=== PATIENT | female | born 1970 | race Hispanic/Latino ===

== ENCOUNTER 2018-10-08 14:34 | Outpatient (CLI) | payer OTHER | END 2018-10-08 14:35 | disposition home or self-care (01) | LOC: BICMAMMO 14:34 | PROVIDERS: ATTEND Family Medicine | DX: Z12.31 Encounter for screening mammogram for malignant neoplasm of breast (principal) | CPT/HCPCS: 77063; 77067 ==

== ENCOUNTER 2019-10-11 08:03 | Outpatient (CLI) | payer OTHER ==
--- NOTE | 2019-10-11 09:13 | MMO ---
Bilateral MAMMO Bilat Screen DDI+DEYSI. CLINICAL HISTORY: Patient is 49 years old and is seen for screening. The patient has no family history of breast cancer. The patient has no personal history of cancer. VIEWS: The views performed were: bilateral craniocaudal with tomosynthesis; bilateral mediolateral oblique with tomosynthesis; and left mediolateral oblique. FILMS COMPARED: The present examination has been compared to prior imaging studies performed at [facility] on 10/06/2017 and 10/08/2018. This study has been interpreted with the assistance of computer-aided detection. MAMMOGRAM FINDINGS: There are scattered fibroglandular densities. There are stable benign appearing calcifications seen in the left breast. There are no suspicious masses, calcifications or areas of architectural distortion. There are no suspicious masses, suspicious calcifications, or new areas of architectural distortion. IMPRESSION: THERE IS NO MAMMOGRAPHIC EVIDENCE OF MALIGNANCY. A ROUTINE FOLLOW-UP MAMMOGRAM IN 1 YEAR IS RECOMMENDED. THE RESULTS OF THIS EXAM WERE SENT TO THE PATIENT. ACR BI-RADS Category 2 - Benign finding MAMMOGRAPHY NOTE: 1. A negative mammogram report should not delay a biopsy if a dominant of clinically suspicious mass is present. 2. Approximately 10% to 15% of breast cancers are not detected by mammography. 3. Adenosis and dense breasts may obscure an underlying neoplasm. Reported by: ORQUIDEA ESCALANTE MD Electonically Signed: [id number]
== END 2019-10-11 08:04 | disposition home or self-care (01) ==
LOC: BICMAMMO 08:03
PROVIDERS: ATTEND Family Medicine
DX: Z12.31 Encounter for screening mammogram for malignant neoplasm of breast (principal)
CPT/HCPCS: 77063; 77067

== ENCOUNTER 2020-02-01 16:11 | Inpatient (IN) | payer OTHER, SELFPAY ==
[2020-02-01 17:33] LABS: Hemoglobin 15.1 g/dL (12.0-16.0); Mean Corpuscular HGB CONC 32.9 g/dL (32.0-36.0); Mean Corpuscular Hemoglobin 31.8 pg (27.0-31.0); Mean Corpuscular Volume 96.6 fL (78.0-98.0); Mean Platelet Volume 9.1 fL (7.4-10.4); Platelet Count 215 thou/uL (130-400); RBC Distribution Width 13.4 % (11.5-14.5); Red Blood Cell (RBC) Count 4.75 mill/uL (4.20-5.40); White Blood Cell (WBC) Count 25.9 thou/uL (4.8-10.8)
[2020-02-01 17:37] LABS: BHCG - Serum Negative (NEGATIVE); Pregs Control Background? CLEAR/WHITE (CLR/WHITE); Pregs Control Bar Appear? YES (CONTROL BAR)
[2020-02-01 17:47] LABS: Band 27 % (5-11); Lymphocytes 4 % (21-51); MDiff Complete? YES; Metamyelocyte 1 % (0-0); Monocytes 1 % (0-10); Neutrophil 67 % (42-75); Platelet Morphology Comment Appears Adequate; RBC Morphology Normal; Vacuoles SLIGHT
--- NOTE | 2020-02-01 17:58 | ULT ---
RIGHT UPPER QUADRANT ULTRASOUND CLINICAL HISTORY: Right upper quadrant pain. COMPARISON: None FINDINGS: Liver:Normal echotexture without focal mass. Intrahepatic bile ducts: No intrahepatic or extrahepatic biliary dilation.; Common bile duct: 5.1 mm. Gallbladder: Numerous gallstones. There is mild gallbladder wall thickening. No definite pericholecys tic edema seen. Amato's sign:None Main portal vein:Patent with hepatopedal flow. Pancreas:Visualized pancreas appears normal. Right kidney: Right kidney measures 10.0 x 4.3 x 5.5 cm. No hydronephrosis. No focal renal lesion. No nspecific mild perinephric edema. Additional findings: None. IMPRESSION: Cholelithiasis without definite sonographic evidence of acute cholecystitis. Nonspecific mild right perinephric edema. No hydronephrosis is demonstrated.
[2020-02-01] MEDS ORDERED: Morphine 4 MG/ML VIAL ONE ×2 (17:59→19:49)
[2020-02-01] MEDS ORDERED: Ondansetron PF 4 MG/2 ML Vial ONE (18:00)
[2020-02-01 18:05] LABS: ALT (SGPT) 400 U/L (8-55); AST (SGOT) 311 U/L (5-34); Albumin 3.7 g/dL (3.5-5.0); Alkaline Phosphatase 576 U/L (40-110); Anion Gap 16 mmol/L (10-20); BUN (Urea Nitrogen) 9 mg/dL (7.0-18.7); Bilirubin, Total 8.8 mg/dL (0.2-1.2); CK (CPK) 38 U/L (29-168); Calc. Creatinine Clearance 0 mL/min (70-130); Calcium 8.6 mg/dL (7.8-10.44); Carbon Dioxide 21 mmol/L (22-29); Chloride 102 mmol/L (98-107); Estimated GFR-MDRD Greater than 90; Globulin 3.8 g/dL (2.4-3.5); Glucose 95 mg/dL (70-105); Protein, Total 7.5 g/dL (6.0-8.3); Sodium 136 mmol/L (136-145)
[2020-02-01 18:09] LABS: Lipase 3568 U/L (8-78)
[2020-02-01 18:21] LABS: Potassium 2.9 mmol/L (3.5-5.1)
[2020-02-01 18:29] LABS: Bilirubin 4+ (Negative); Blood, Urine Negative (Negative); Clarity Turbid (Clear); Glucose, Urine (Dipstick) 50 mg/dL (Negative); Leukocyte 250 Leu/uL (Negative); Nitrite Negative (Negative); Protein, Urine (Dipstick) 200 mg/dL (Neg-Trace); RBC/HPF 0-3 HPF (0-3); Urobilinogen 6 mg/dL (Less than 2)
[2020-02-01 18:40] LABS: Bacteria/HPF 2+ HPF (None Seen)
[2020-02-01 18:41] LABS: Epithelial Cast 0-3 LPF (None Seen)
[2020-02-01] MEDS ORDERED: Piperacillin/Tazobactam 4.5 GM VIAL ONE (18:45)
[2020-02-01] MEDS ORDERED: Piperacillin/Tazobactam 4.5 GM in Sodium Chloride 0.9% 100 ML IVPB SCH (19:00)
[2020-02-01] MEDS ORDERED: Potassium Chloride 40 MEQ in Sodium Chloride 0.9% 250 ML 250 ML IVPB SCH (19:00)
[2020-02-01] MEDS ORDERED: Morphine 2 MG/ML SYRINGE SLOW IVP PRN (21:43)
[2020-02-01] MEDS ORDERED: Morphine 4 MG/ML VIAL SLOW IVP PRN (21:43)
[2020-02-01] MEDS ORDERED: Metoclopramide HCl 10 MG/2 ML VIAL IVP PRN (21:43)
--- NOTE | 2020-02-01 22:20 | HP ---
CHIEF COMPLAINT: Pain. HISTORY OF PRESENT ILLNESS: This is a 49-year-old female with rheumatoid arthritis, on chronic steroid therapy and immunotherapy, who presents to the emergency room with a complaint of abdominal pain and back pain. The patient reports over the past 2 weeks having intermittent throbbing pain that has rated up to a 7/10 or 8/10 in intensity. She reports being seen in a clinic 8 days ago and told that her back was inflamed and she was prescribed pain medications and nausea medicine. She denies any prior history. She reports that the nausea and vomiting are not daily, however, the last episode did occur today. She has had decreased p.o. intake because of this. She has not tried any other medications. Denies any fevers or chills, denies any chest pain or difficulty breathing. She does note that her urine is dark and states that she has not been drinking as much fluid as she normally does. In the emergency room, the patient has been diagnosed with pancreatitis, cholangitis and with elevated LFTs, concern for obstruction. She has received normal saline 1 L x2, ondansetron 4 mg IV, morphine 4 mg IV x2, Zofran 4.5 g IV, potassium chloride 40 mEq IV, and started on lactated Ringer's at 150 an hour and hospitalist called for admission. PMH: Rheumatoid Arthritis PSH: denies Family history: denies any liver problems Social history: Lives with who is her surrogate decision maker. Denies alcohol or tobacco. Medications - reconcilled with the bottles: 1. Folic acide 1 mg daily 2. Tramadol 50 mg - 1 or 2 tabs BID 3. Pilocarpine 5 mg as needed 1-3 times per day 4. Prednisone 5 mg - 1 1/2 tabs daily 5. Methotrexate 2.5 mg - 4 tabs once weekly Allergies to medication: Denies PHYSICAL EXAMINATION: VITAL SIGNS: Blood pressure 114/78, pulse 113, respirations 19, temperature 99 , sat 99% on room air. Pain 3/10. GENERAL: Awake, alert, responsive, in no apparent distress. Able to speak in full sentences. HEENT: Scleral icterus bilateral. Oral mucosa is pink and dry. NECK: Supple, nontender. LYMPHATICS: No palpable cervical or anterior cervical lymphadenopathy. LUNGS: Clear to auscultation bilateral. No audible wheezing, rhonchi, or rales. HEART: Normal S1, S2. Regular rate and rhythm. No significant murmur. ABDOMEN: Soft with present bowel sounds. Nontender, nondistended. EXTREMITIES: No clubbing, cyanosis, or edema. SKIN: Jaundice appearing. NEUROLOGIC: No focal deficits. PSYCHIATRIC: Appears euthymic. VASCULAR: 2+ dorsalis pedis pulses. Right upper quadrant ultrasound shows cholelithiasis without definite sonographic evidence of acute cholecystitis. LABORATORY DATA: CBC; 25.9, 15.1, 45.8, 215. Renal panel; 136, 2.9, 102, 21, 9, 0.67, 95. T bilirubin 8.8, AST 311, ALT 400, alkaline phosphatase 576, total protein 7.5, albumin 3.7. Lipase 3568. negative. Urine present protein, ketones, 4+ bilirubin, 6 urobilinogen, present leuk esterase, white blood cells, transitional epithelial cells, renal epithelial cells, bacteria, epithelial casts, and hyaline casts. EKG is sinus rhythm, normal axis, tachycardic to the 130s with a QT corrected of 547. No ST changes. IMPRESSION: 1. Pancreatitis in the context of an obstructive pattern of elevated liver function tests, cholelithiasis, concern of both cholangitis and choledocholithiasis. 2. Hypokalemia. 3. Rheumatoid arthritis, on chronic steroid therapy and immunotherapy. 4. Abnormal urinalysis. 5. Mild metabolic acidosis. 6. Prolonged QT interval. 7. Tachycardia, likely secondary to dehydration and infectious process. PLAN: 1. Inpatient admission to the hospital. 2. The patient is at high risk due to chronic steroid therapy and immunotherapy for rheumatoid arthritis. We will continue the Zosyn at a higher dosing of 4.5 g q.6 hours. We will continue IV fluid for hydration, monitor electrolytes including potassium and check magnesium in the morning. 3. Consultation to GI. An MRCP to evaluate for an obstructive process of the common bile duct. 4. Blood cultures, I do not see that these have been obtained, unfortunately patient has received the first dose of antibiotics. We will also add a urine culture as her urinalysis is abnormal. 5. Continue replacement of potassium. 6. We will continue her usual steroid dosing. I do not see an indication for stress dosing of the steroids at this time. However, if she becomes hypotensive or not responding to therapy, consideration needs to be given then for this. 7. Continue the folic acid, hold her methotrexate. 8. Continue pain medication. We will add morphine as she has responded well in the emergency department. 9. Avoid medications that can prolong the QT interval. We will order Reglan p.r.n. for nausea. 10. Monitor urine output. 11. DVT prophylaxis - SCD's 12. GI prophylaxis - not indicated. 13. Code status full, surrogate decision maker noted above. 11. Reviewed with the patient and her daughter through the hospital senior attorney protocol, this hospitalization, the diagnoses we are working with, the need for an additional study, as well as evaluation by GI tomorrow. They demonstrate understanding and agree. 12. The patient is at high risk given age, comorbidities, and current presentation. Job ID: [id number] MTDD
[2020-02-02] MEDS: NS 0.9% w/ 40 MEQ KCL 1,000 ML IV SCH ×4 (00:30→15:57)
[2020-02-02] MEDS: Piperacillin/Tazobactam 4.5 GM in Sodium Chloride 0.9% 100 ML IVPB SCH ×4 (00:31→18:08)
[2020-02-02 04:54] LABS: Anion Gap 12 mmol/L (10-20); BUN (Urea Nitrogen) 9 mg/dL (7.0-18.7); Calc. Creatinine Clearance 133 mL/min (70-130); Calcium 7.3 mg/dL (7.8-10.44); Carbon Dioxide 21 mmol/L (22-29); Chloride 109 mmol/L (98-107); Estimated GFR-MDRD Greater than 90; Glucose 81 mg/dL (70-105); Magnesium 1.5 mg/dL (1.6-2.6); Potassium 3.7 mmol/L (3.5-5.1); Sodium 138 mmol/L (136-145)
[2020-02-02 05:13] LABS: Band 13 % (5-11); Hemoglobin 12.9 g/dL (12.0-16.0); Lymphocytes 2 % (21-51); MDiff Complete? YES; Mean Corpuscular HGB CONC 33.1 g/dL (32.0-36.0); Mean Corpuscular Volume 96.9 fL (78.0-98.0); Mean Platelet Volume 9.1 fL (7.4-10.4); Monocytes 5 % (0-10); Neutrophil 80 % (42-75); Platelet Count 173 thou/uL (130-400); Platelet Morphology Comment Appears Adequate; RBC Distribution Width 13.5 % (11.5-14.5); RBC Morphology Normal; Red Blood Cell (RBC) Count 4.04 mill/uL (4.20-5.40); White Blood Cell (WBC) Count 17.4 thou/uL (4.8-10.8)
[2020-02-02 10:49] LABS: ALT (SGPT) 286 U/L (8-55); AST (SGOT) 213 U/L (5-34); Alkaline Phosphatase 412 U/L (40-110); Bilirubin, Direct 4.5 mg/dL (0.1-0.3); Protein, Total 6.2 g/dL (6.0-8.3)
[2020-02-02] MEDS ORDERED: Glycopyrrolate 0.2 MG/ML 5 ML SYRINGE ONE (10:51)
[2020-02-02] MEDS ORDERED: Dexamethasone 20 MG/5 ML VIAL ONE (10:51)
[2020-02-02] MEDS ORDERED: PHENYLEPHRINE-NS 100 MCG/ML 10 ML SYRINGE ONE (10:51)
[2020-02-02] MEDS ORDERED: Rocuronium Bromide 10 MG/ML (10ML VIAL) ONE (10:51)
[2020-02-02] MEDS ORDERED: Ketorolac Tromethamine 30 MG/ML VIAL ONE (10:51)
[2020-02-02] MEDS ORDERED: PROPOFOL 200 MG/20 ML VIAL ONE (10:51)
[2020-02-02] MEDS ORDERED: Ondansetron PF 4 MG/2 ML Vial ONE (10:51)
[2020-02-02] MEDS ORDERED: Lidocaine 1% PF 5 ML VIAL ONE (10:51)
[2020-02-02 11:02] LABS: Lipase 1413 U/L (8-78)
--- NOTE | 2020-02-02 11:28 | MRI ---
MRI ABDOMEN WITHOUT CONTRAST: HISTORY: Abdominal pain. Jaundice. Elevated LFTs. Right upper quadrant pain. CORRELATION: The previous day's ultrasound. FINDINGS: Multiple gallstones are present. A 10 mm lesion at the anterior aspect of the dome of the liver with low T1 and high T2 signal may either represent a cyst or a hemangioma. No abnormal biliary ductal dil atation is seen. No abnormal pancreatic ductal dilatation is seen. There is a small amount of fluid i n the upper abdomen, including the anterior perineal space, the perinephric spaces, the Parisi's po uch and adjacent to the liver and spleen. There is edema at the head of the pancreas. No calculi are seen in the common bile duct. The spleen is mildly enlarged, measuring 13.5 cm. The abdominal aorta i s of normal caliber. No lymphadenopathy is seen. Bone marrow signal is normal. There are small bilate ral pleural effusions, right greater than left. IMPRESSION: 1. Cholelithiasis. 2. No evidence of choledocholithiasis. 3. Findings suggestive of pancreatitis. 4. Lesion in the liver is statistically likely to represent a benign finding in the absence of known malignancy. 5. Small bilateral pleural effusions. 6. Small amount of free fluid in the abdomen. 7. Mild splenomegaly. 8. If there is high clinical suspicion for cholecystitis, further evaluation with HIDA scan should be performed. POS: PEPE
[2020-02-02] MEDS ORDERED: Magnesium 2 GM/50 ML 2 GM in Premix Bag 1 BAG IVPB SCH (11:30)
--- NOTE | 2020-02-02 15:05 | PDOC.HOSPP ---
- Subjective Encounter Date: 02/02/20 Encounter Time: 15:02 Subjective: Pt seen for followup re: sepsis. fever+. Abdo pain better. - Objective Vital Signs & Weight: Vital Signs (12 hours) Temp Pulse Resp BP Pulse Ox 02/02/20 14:33 98.4 F 106 H 18 118/78 94 L 02/02/20 12:05 98.6 F 107 H 16 120/68 95 02/02/20 08:19 100.0 F H 111 H 16 106/61 96 02/02/20 03:15 97.8 F 113 H 18 118/56 L 96 Weight Weight 172 lb 0.5 oz I&O: 02/01/20 02/02/20 02/03/20 05:59 06:59 06:59 Intake Total Output Total Balance Result Diagrams: 02/02/20 04:15 02/02/20 04:15 Additional Labs: Labs and MARs reviewed by ct Hospitalist ROS - Review of Systems Constitutional: reports: fever. denies: chills, sweats, weakness, malaise Cardiovascular: denies: chest pain, palpitations, orthopnea, paroxysmal noc. dyspnea, edema, light headedness Gastrointestinal: reports: abdominal pain. denies: nausea, vomiting, diarrhea, constipation, melena, hematochezia Genitourinary: denies: dysuria, frequency, incontinence, hematuria, retention Musculoskeletal: denies: neck pain, shoulder pain, arm pain, back pain, hand pain, leg pain, foot pain Skin: reports: tracy. denies: rash, lesions, bruising - Medication Medications: Active Medications Generic Name Dose Route Start Last Admin Trade Name Roryq PRN Reason Stop Dose Admin Potassium Chloride/Sodium Chloride 1,000 mls @ 150 mls/hr 02/01/20 21:45 07/16 12:30 Ns 0.9% W/ 40 Meq Kcl IV 1,000 mls .[id number] DOROTA Administration Piperacillin Sod/Tazobactam 100 mls @ 200 mls/hr 02/02/20 01:00 02/02/20 13: 56 Sod 4.5 gm/ Sodium Chloride IVPB 100 mls 0100,0700,1300,1900 DOROTA Administration Sodium Chloride 10 ml 02/02/20 09:00 02/02/20 12:30 Flush - Normal Saline IVF 10 ml Q12HR DOROTA Administration - Exam General - other findings: Obese Eye: scleral icterus ENT: moist mucosa Neck: supple, symmetric, no JVD, no thyromegaly, no lymphadenopathy Heart: RRR, no gallops, no rubs, normal peripheral pulses Respiratory: CTAB, no wheezes, no rales, no ronchi, normal chest expansion, no tachypnea Gastrointestinal: soft, non-distended, normal bowel sounds, distended Gastrointestinal - other findings: mild epigastric tenderness, no guarding or rigidity Extremities: no edema Psychiatric: normal affect, normal behavior, oriented to person, oriented to place, oriented to time Hosp A/P (1) Sepsis Code(s): A41.9 - SEPSIS, UNSPECIFIED ORGANISM Status: Acute (2) Cholelithiasis Code(s): K80.20 - CALCULUS OF GALLBLADDER W/O CHOLECYSTITIS W/O OBSTRUCTION Status: Acute (3) Acute pancreatitis Code(s): K85.90 - ACUTE PANCREATITIS WITHOUT NECROSIS OR INFECTION, UNSP Status: Acute (4) Abnormal LFTs Code(s): R94.5 - ABNORMAL RESULTS OF LIVER FUNCTION STUDIES Status: Acute (5) Rheumatoid arthritis Code(s): M06.9 - RHEUMATOID ARTHRITIS, UNSPECIFIED Status: Chronic - Plan plan discussed w/ family, continue antibiotics, out of bed/ambulate Sepsis secondary to cholecystitis vs cholangitis. MRCP report noted. d/sw GI service Gen surgery consulted re: cholelithiasis, ? cholecystitis. Continue IV Zosyn. Methotrexate is on hold. Replace magnesium.
[2020-02-02] MEDS: predniSONE 5 MG TAB PO SCH (15:32)
[2020-02-02] MEDS: Folic Acid 1 MG TAB PO SCH (15:32)
[2020-02-02] MEDS ORDERED: Hydrocortisone Sod Succ/PF 100 mg/2 ml Vial ONE (16:17)
[2020-02-02] MEDS ORDERED: Bupivacaine PF 0.5% 30 ML VIAL ONE (16:18)
[2020-02-02] MEDS ORDERED: Lidocaine 1% w/Epinephrine 1:100K 20 ML VIAL ONE (16:18)
[2020-02-02] MEDS ORDERED: Midazolam HCl 2 mg/2 ml Vial ONE (16:42)
[2020-02-02] MEDS ORDERED: Fentanyl 100 MCG/2 ML VIAL ONE (16:42)
[2020-02-02] MEDS ORDERED: HYDROmorphone 0.5 MG/0.5 ML SYRINGE ONE (16:42)
[2020-02-02] MEDS ORDERED: Iothalamate Meglumine 60% 50 ML VIAL FS ONE (17:37)
--- NOTE | 2020-02-02 18:03 | CON ---
DATE OF CONSULTATION: 02/02/2020 REQUESTING PHYSICIAN: Dr. Jose Renee. HISTORY OF PRESENT ILLNESS: Ms. Mann is a 49-year-old woman, Kyrgyz-speaking only, who presented to the emergency department on 02/01/2020. The patient was complaining of over 1-week history of epigastric abdominal pain, which radiated to her back. Pain was usually exacerbated by eating and associated with multiple episodes of nausea and a few bouts of nonbilious emesis. The patient reports no fevers or chills. Maximum intensity of the pain was rated at 8/10. The patient denies any fevers or chills. She endorses abdominal bloating and frequent flatulence over the last 1 week. She denies any diarrhea or hematochezia. The patient denies any unexplained weight loss. PAST MEDICAL HISTORY: Significant for rheumatoid arthritis. PAST SURGICAL HISTORY: The patient denies any previous surgeries. SOCIAL HISTORY: She is , lives at home with her family. 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 She denies any cigarette smoking, ethanol, or illicit drug abuse. PRE-HOSPITAL MEDICATIONS: Include: 1. Methotrexate 2.5 mg four tablets weekly. 2. Folic acid 1 mg p.o. daily. 3. Prednisone 7.5 mg p.o. daily. 4. Pilocarpine 5 mg p.r.n. 5. Tramadol 50 mg one to two p.o. b.i.d. p.r.n. pain. FAMILY HISTORY: The patient denies any family history of diabetes mellitus, hypertension, heart disease, or cancer. ALLERGIES: THE PATIENT DENIES ANY KNOWN DRUG ALLERGIES. REVIEW OF SYSTEMS: Ten-point review of systems essentially unremarkable except as stated in past medical history and chief complaint. PHYSICAL EXAMINATION: GENERAL: This reveals a 49-year-old normally developed woman, who is otherwise coherent and interactive and appears stated age. The patient is alert and oriented x3, appears to be in no acute distress at the time of my evaluation. Her pain is now improved to 2/10. VITAL SIGNS: Currently include blood pressure 118/78, pulse 106, respiratory rate is 18, temperature is 98.4 degrees Fahrenheit, and oxygen saturation is 94% on room air. HEENT: Reveals pupils are equal, round, reactive to light and accommodation. She has bilateral scleral icterus present. NECK: No jugular venous distention noted. HEART: Reveals regular rate with sinus tachycardia. No murmurs or gallops auscultated. LUNGS: Clear to auscultation bilaterally. Her breathing is regular and nonlabored. ABDOMEN: Soft with epigastric tenderness to palpation. She has a negative Amato sign. Liver and spleen nonpalpable below costal margin. NEUROLOGIC: Reveals no focal deficits present. LABORATORY FINDINGS: Today include a CBC with 17,400 white blood cells improved from 25,900 yesterday. Hemoglobin and hematocrit are 12.9 and 39.1 respectively. Platelet count is 173,000. Differential counts as follows; 80 segmented neutrophils, 13 bands, 2 lymphocytes, and 5 monocytes. Metabolic profile; sodium 138, potassium 3.7, chloride is 109, bicarb is 21, BUN is 9, creatinine 0.60, glucose is 81, magnesium is 1.5. Total bilirubin is 6.0, AST and ALT of 213 and 286 respectively. Alkaline phosphatase is 412. LFTs yesterday included a total bilirubin of 8.8, AST and ALT are 311 and 400 respectively with alkaline phosphatase 576. Serum lipase today is 1413, this is down from 3568 yesterday. Serum test is negative. I have personally reviewed the abdominal ultrasound, which is remarkable for multiple intraluminal gallstones with no significant pericholecystic fluid or gallbladder wall thickening present. Gallbladder, common bile duct is normal in diameter for this patient's age at 5.1 mm. An MRCP was obtained earlier today, which reveals residual inflammation in the pancreatic head with no evidence of choledocholithiasis. IMPRESSION: 1. Acute cholecystitis with cholelithiasis. 2. Probable resolved choledocholithiasis. 3. Resolving acute gallstone pancreatitis. 4. History of rheumatoid arthritis. PLAN: 1. Laparoscopic cholecystectomy with intraoperative cholangiogram. 2. The patient will be given a stress dose of hydrocortisone perioperatively. Above findings and recommendations discussed with the patient through a active directory engineer in the presence of her daughter and . I have informed the patient of the risks and benefits of the proposed surgery to include, but not limited to bleeding, infection, injury to bile duct or surrounding structures. The patient indicates understanding of information given. I have answered their questions. The patient is going to consent for this surgical intervention. Thank you again, Dr. Renee for allowing me the opportunity to participate in the care of this patient. Job ID: [id number]
--- NOTE | 2020-02-02 18:36 | CON ---
DATE OF CONSULTATION: 02/02/2020 REASON FOR CONSULTATION: 1. Abdominal pain, nausea, vomiting, abnormal LFTs. 2. Acute pancreatitis. 3. Abnormal LFTs. HISTORY OF PRESENT ILLNESS: Ms. Gem Mann is a very pleasant 49-year-old female came to the ER with abdominal pain, nausea, and vomiting. The pain is over the right upper quadrant epigastric area and going towards the back. She had nausea and vomiting. No fever or chills. The patient has been having abdominal pain off and on for the last 7 or 10 days. She went to an outpatient clinic and was given some pain medicines and some for nausea. The pain got worse yesterday and she came to the ER. The evaluation reveals acute pancreatitis and also abnormal LFTs. There is a possibility of cholangitis and was started on IV Zosyn. She is feeling a whole lot better today. She appears very comfortable. She says her pain is minimal in amount. She is seen along with the patient's daughter in the room. The patient does not speak Iraqi and the daughter was the certified court interpreter. The patient tells me she is feeling whole lot better. She had no nausea and no vomiting. No fever. The patient's abdominal CAT scan performed yesterday, which revealed gallstones, but the common bile duct only about 5.8 mm. The patient's bowel movements are regular. No hematochezia. No melena. She has no urinary symptoms. She has no other relevant symptoms. ALLERGIES: NO ALLERGIES. 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 She does not smoke. Does not drink alcohol. No history of drug abuse. MEDICAL ILLNESSES: Rheumatoid arthritis and was seeing a belt dresser in [place] in the past. She does not see any more. No history of hypertension, diabetes, or heart disease. PAST SURGICAL HISTORY: None. FAMILY HISTORY: No family history of diabetes. No family history of gallstones. MEDICATIONS: 1. Folic acid 1 mg once a day. 2. Tramadol 50 mg p.o. twice a day. 3. Pilocarpine 5 mg p.o. three times a day as needed. 4. Prednisone 5 mg 1/2 tablets daily. 5. Methotrexate 2.5 mg four tablets once a week. REVIEW OF SYSTEMS: 10-point review of system reveal HEAD: No chronic headache, no dizziness. EYES: No diplopia. No impaired vision. EARS: No hearing loss. No bleeding. No pain. NOSE: No nose bleeding. THROAT: No sore throat or dysphagia. LUNGS: No chronic coughing, hemoptysis, dyspnea. CARDIOVASCULAR: No chest pain. No palpitation. No dyspnea, orthopnea, PND GI: As in history of present illness : No dysuria, hematuria, or frequency of urination. MUSCULOSKELETAL: Not known. NEURO: Not known. PSYCHIATRY: Not known. PHYSICAL EXAMINATION: GENERAL: She appears very comfortable, in no acute distress. She is awake, alert, oriented to time and place and person. VITAL SIGNS: She was afebrile yesterday, but today she had low-grade fever of 100 degrees, pulse is 111, blood pressure is 106/69. HEENT: She is icteric. NECK: Supple. CARDIOVASCULAR: First and second heart sounds heard. LUNGS: Clear to auscultation. ABDOMEN: Soft to palpate. Benign. She is slightly tender over the epigastric area, right upper quadrant. There is no rebound or guarding. Her bowel sounds are normal. EXTREMITIES: Reveal no edema. LABORATORY DATA: From yesterday. She has hypokalemia, which is back to normal today at 3.7. The serum lytes are normal. BUN is 9, creatinine 0.60, calcium 7.3, bilirubin 8.4 yesterday today dropping to 6. AST 311 dropping to 213, ALT 400, dropping to 286, alkaline phosphatase 576, dropping to 412, lipase 3568 yesterday, today dropping down to 1418. An abdominal sonogram showed liver mass that show gallstones. The CBD is not dilated measuring approximately 5.1 mm. She had an MRI of the abdomen this morning. The MRI is negative for the common bile duct stone. She does have gallstones. CLINICAL IMPRESSION: 1. A 49-year-old female with acute pancreatitis, most likely biliary. The patient most likely has passed common bile duct stone. I believe she probably has transverse cholangitis because of common bile duct stone. I believe she most likely passed a stone down as her MRI is negative for any common bile duct stone. 2. Rheumatoid arthritis. 3. Gallstone. 4. Transverse cholangitis. Overall impression she is getting better this morning and her abdomen is very benign at the present time. She is slightly tender. Her liver function tests are coming down, also lipase coming down. RECOMMENDATION: As follows. Surgical input for cholecystectomy. MRI is negative for common bile duct stone. I believe she does not need ERCP. Job ID: [id number]
[2020-02-02] MEDS ORDERED: traMADol HCl 50 MG TAB PO PRN ×2 (19:03)
--- NOTE | 2020-02-02 19:19 | OP ---
DATE OF PROCEDURE: 02/02/2020 PREOPERATIVE DIAGNOSES: 1. Acute cholecystitis and cholelithiasis. 2. Resolved choledocholithiasis. 3. Resolving gallstone pancreatitis. OPERATION PERFORMED: Laparoscopic cholecystectomy. ANESTHESIA: General endotracheal. ESTIMATED BLOOD LOSS: 50 mL. FLUIDS GIVEN: 1000 mL crystalloids. COUNTS: Sponge and instrument counts were verified as correct x2. COMPLICATIONS: None apparent at the time of operation. INDICATIONS FOR OPERATION: A 49-year-old woman presented with persistent epigastric to right upper quadrant abdominal pain radiating to her back. Clinical radiographic examination was consistent with acute cholecystitis, cholelithiasis, and gallstone pancreatitis. Choledocholithiasis was suspected. The patient underwent MRCP, which revealed no choledocholithiasis. The patient was brought to the operating room today for laparoscopic cholecystectomy as clinical examination indicates a resolving gallstone pancreatitis. Findings are consistent with dilated gallbladder completely full of stones and encased by omental adhesions in the normal anatomic position. DESCRIPTION OF PROCEDURE: Informed consent was obtained from the patient, who was brought to the operating room and placed in supine position. Following general anesthesia, abdomen was sterilely prepped and draped in usual fashion. The skin below the umbilicus was infiltrated with 0.25% Marcaine with epinephrine. A small curvilinear infraumbilical incision was made using 11 scalpel. Umbilical stalk was grasped with Yoel and elevated. Veress needle was introduced through the incision and placed in peritoneal cavity through which the abdomen was insufflated with 3 L of CO2 gas. Intraabdominal pressure was noted at 2 mmHg. Following abdominal insufflation, Veress needle was removed and a 5 mm trocar introduced using a Visiport under laparoscopy. Laparoscopy confirmed proper placement of the port. No injuries to underlying structures. Additional laparoscopy reveals gallbladder in the usual anatomic location completely encased by dense omental adhesions. Under the laparoscopy, a 12 mm epigastric and two 5 mm right lateral subcostal ports were placed after the overlying skin were infiltrated with 0.25% Marcaine with epinephrine. Appropriate incision was made. The patient was placed in a reverse Trendelenburg position, rotated to her left. I introduced a [place] dissector with cautery through the epigastric port site, using this to take down omental adhesions to reveal the fundus of the gallbladder. I introduced Prestige grasper through the right lateral subcostal port grasping the fundus of the gallbladder, which was elevated cephalad. Omental adhesions were then meticulously taken down from remainder of the gallbladder with good hemostasis. A second Prestige grasper introduced through the right medial subcostal port grasping the Dimas pouch which was retracted laterally. The cystic artery and duct were dissected free from surrounding structures at the triangle of Calot. Critical view was obtained. The duct was divided between clips applying 2 clips proximally and 1 clip at the junction of the cystic duct and gallbladder. Cystic artery was divided between clips in a similar fashion. The gallbladder itself was removed from the liver bed using cautery and delivered of the abdominal cavity using the EndoCatch. Bleeding points in the gallbladder fossa were readily controlled using cautery. Operative site was irrigated with saline. Finding no other pathology, I decided to place a #19 Rufino drain in the gallbladder fossa allowing this to exit the abdominal cavity through the right lateral subcostal port. The drain was secured to anterior abdominal wall using 2-0 silk suture. The abdomen was desufflated. All ports and instruments removed and accounted for. Skin incision was closed using 4-0 Monocryl suture in subcuticular fashion. Dermabond was applied over incisional closure. The patient tolerated the operation without any apparent complications and was returned to recovery room in satisfactory condition. Job ID: [id number]
[2020-02-02] MEDS ORDERED: FLU VACC QS2019-20(6MOS UP)/PF 60 MCG/0.5 ML SYRINGE IM ONE (21:00)
[2020-02-02] MEDS ORDERED: Prevnar 13-Val Conj/PF 0.5 ML SYRINGE IM ONE (21:00)
[2020-02-02] MEDS: Acetaminophen 500 MG TAB PO SCH (21:18)
[2020-02-03] MEDS: NS 0.9% w/ 40 MEQ KCL 1,000 ML IV SCH ×2 (00:18→06:21)
[2020-02-03] MEDS: Piperacillin/Tazobactam 4.5 GM in Sodium Chloride 0.9% 100 ML IVPB SCH ×2 (00:18→06:21)
[2020-02-03] MEDS: Acetaminophen 500 MG TAB PO SCH ×4 (02:29→21:00)
[2020-02-03] MEDS ORDERED: Sodium Chloride 0.9% 500 ML IV SCH (02:45)
[2020-02-03 03:40] LABS: #Basophils 0.2 thou/uL (0.0-0.2); #Lymphocytes 0.6 thou/uL (1.20-3.40); #Monocytes 0.5 thou/uL (0.11-0.59); #Neutrophils 10.6 thou/uL (1.40-6.50); %Basophils 1.6 % (0.0-1.0); %Lymphocytes 5.2 % (21.0-51.0); %Monocytes 4.3 % (0.0-10.0); %Neutrophils 88.9 % (42.0-75.0); Hemoglobin 9.2 g/dL (12.0-16.0); Mean Corpuscular HGB CONC 33.1 g/dL (32.0-36.0); Mean Corpuscular Hemoglobin 32.6 pg (27.0-31.0); Mean Corpuscular Volume 98.6 fL (78.0-98.0); Mean Platelet Volume 9.5 fL (7.4-10.4); Platelet Count 176 thou/uL (130-400); RBC Distribution Width 13.4 % (11.5-14.5); Red Blood Cell (RBC) Count 2.82 mill/uL (4.20-5.40); White Blood Cell (WBC) Count 11.9 thou/uL (4.8-10.8)
[2020-02-03 03:54] LABS: ALT (SGPT) 188 U/L (8-55); AST (SGOT) 163 U/L (5-34); Albumin 2.4 g/dL (3.5-5.0); Alkaline Phosphatase 239 U/L (40-110); Bilirubin, Direct 1.4 mg/dL (0.1-0.3); Phosphorus 2.9 mg/dL (2.3-4.7); Protein, Total 5.2 g/dL (6.0-8.3)
[2020-02-03 03:58] LABS: Anion Gap 11 mmol/L (10-20); BUN (Urea Nitrogen) 18 mg/dL (7.0-18.7); Calc. Creatinine Clearance 117 mL/min (70-130); Calcium 7.1 mg/dL (7.8-10.44); Carbon Dioxide 20 mmol/L (22-29); Chloride 111 mmol/L (98-107); Estimated GFR-MDRD 87; Glucose 161 mg/dL (70-105); Lipase 117 U/L (8-78); Magnesium 2.3 mg/dL (1.6-2.6); Sodium 138 mmol/L (136-145)
[2020-02-03] MEDS ORDERED: Hydrocortisone Sod Succ/PF 100 mg/2 ml Vial IVP SCH ×2 (04:15→12:00)
[2020-02-03] MEDS: predniSONE 5 MG TAB PO SCH (08:48)
[2020-02-03] MEDS: Folic Acid 1 MG TAB PO SCH (08:49)
--- NOTE | 2020-02-03 11:46 | PRG ---
DATE OF SERVICE: 02/03/2020 SUBJECTIVE: Ms. Mann is a 49-year-old female coming to the ED for evaluation of abdominal pain. She sustained acute cholecystitis and cholelithiasis, acute gallstone pancreatitis, resolving and choledocholithiasis, resolving. The patient underwent laparoscopy cholecystectomy with Dr. Arthur yesterday. The patient reports pain is better controlled. She is still under n.p.o. The patient afebrile. White count decreased from 25,000 on admission and this morning is 11.9. Hemoglobin dropped from to 9.2. The patient blood pressure little bit soft and with her cortisol level at 32.3, the patient had fluid resuscitation yesterday. This morning, the patient's blood pressure is 90 systolic. She makes good urine, not yet have bowel. Her ADALID drain came out 690 overnight and this morning is 25 an hour. OBJECTIVE: GENERAL: Patient is lying in bed comfortable with no acute respiratory distress. Abdominal pain is 3 to 4/10 pain. VITAL SIGNS: Stable. ABDOMEN: Soft, nondistended. LACEY drain is in place. serous color ASSESSMENT: 1. Acute gallstone pancreatitis, resolving. 2. Acute cholecystitis with cholelithiasis, laparotomy. Sodium 138, potassium 4.0, creatinine 0.71. LFT decreased. AST from 213 yesterday to 163, ALT 286 yesterday to 188, and alkaline phosphatase also reduced from 412 to 239, total bilirubin from 6 to 2 today and lipase reduced from 1400 yesterday to 117. PLAN: The patient will have regular diet today. Continue pain control. Discontinue IV fluid. If the patient tolerate her diet, anticipate discharge home tomorrow. We will follow up with Dr. Arthur in 2 weeks on February 12 at 10:30 with LFT and General Surgery will continue to follow up while the patient is in the hospital. Job ID: [id number] MTDD
[2020-02-03 15:00] VITALS: BMI 30.4
--- NOTE | 2020-02-03 17:31 | PDOC.HOSPP ---
- Subjective Encounter Date: 02/03/20 Encounter Time: 10:20 Subjective: Pt seen for followup re: acute cholecystitis. Feels better today. - Objective Vital Signs & Weight: Vital Signs (12 hours) Temp Pulse Resp BP BP Pulse Ox 02/03/20 16:22 98.0 F 101 H 18 130/85 97 02/03/20 11:33 97.7 F 105 H 18 111/73 96 02/03/20 08:00 96 02/03/20 07:31 98.0 F 99 20 90/59 L 95 Weight Admit Weight 166 lb 1 oz Weight 172 lb 0.5 oz I&O: 02/02/20 02/03/20 02/04/20 06:59 06:59 06:59 Intake Total 240 Output Total 950 25 Balance -950 215 Result Diagrams: 02/03/20 03:20 02/03/20 03:19 Additional Labs: Labs and MARs reviewed by ca Hospitalist ROS - Review of Systems Cardiovascular: denies: chest pain, palpitations, orthopnea, paroxysmal noc. dyspnea, edema, light headedness Gastrointestinal: denies: nausea, vomiting, abdominal pain, diarrhea, constipation, melena, hematochezia - Medication Medications: Active Medications Generic Name Dose Route Start Last Admin Trade Name Freq PRN Reason Stop Dose Admin Acetaminophen 1,000 mg 02/02/20 20:00 02/03/20 14:55 Tylenol PO 1,000 mg Q6H DOROTA Administration Folic Acid 1 mg 02/02/20 09:00 02/03/20 08:49 Folvite PO 1 mg DAILY DOROTA Administration Prednisone 7.5 mg 02/02/20 09:00 02/03/20 08:48 Prednisone PO 7.5 mg DAILY DOROTA Administration Sodium Chloride 10 ml 02/02/20 09:00 02/03/20 08:49 Flush - Normal Saline IVF Not Given Q12HR DOROTA - Exam General Appearance: NAD, awake alert ENT: moist mucosa Neck: supple Heart: RRR Respiratory: CTAB Gastrointestinal: soft, non-tender, normal bowel sounds Gastrointestinal - other findings: ADALID drain Musculoskeletal: no muscle wasting Psychiatric: normal affect, normal behavior Hosp A/P (1) Acute cholecystitis Code(s): K81.0 - ACUTE CHOLECYSTITIS Status: Acute (2) Cholelithiasis Code(s): K80.20 - CALCULUS OF GALLBLADDER W/O CHOLECYSTITIS W/O OBSTRUCTION Status: Acute (3) Acute pancreatitis Code(s): K85.90 - ACUTE PANCREATITIS WITHOUT NECROSIS OR INFECTION, UNSP Status: Acute (4) Abnormal LFTs Code(s): R94.5 - ABNORMAL RESULTS OF LIVER FUNCTION STUDIES Status: Acute (5) Rheumatoid arthritis Code(s): M06.9 - RHEUMATOID ARTHRITIS, UNSPECIFIED Status: Chronic (6) Sepsis Code(s): A41.9 - SEPSIS, UNSPECIFIED ORGANISM Status: Resolved - Plan continue antibiotics, out of bed/ambulate s/p lap elias yesterday. Clinically improved. Off of antibiotics. Methotrexate is on hold. Likely home tomorrow.
--- NOTE | 2020-02-04 00:05 | PRG ---
DATE OF SERVICE: 02/03/2020 SUBJECTIVE: The patient was seen this evening, lying in bed with no signs of acute distress. She is postoperative day #1, status post laparoscopic cholecystectomy. She is currently on a regular diet and tolerating. She reports that she is tolerating food just fine, but can only eat a small amount. OBJECTIVE: VITAL SIGNS: Temperature 98.3, pulse 92, respirations 18, oxygen saturation 94% on room air, and blood pressure 129/84. GENERAL: Well-appearing middle-aged female, lying in bed with no signs of acute distress. PULMONARY: Equal chest rise and fall. No signs of acute respiratory distress. ABDOMEN: Soft, nontender, and nondistended. ASSESSMENT: 1. Postop day #1, status post laparoscopic cholecystectomy. 2. Cholecystitis and cholelithiasis. 3. Choledocholithiasis. 4. Gallstone pancreatitis. PLAN: Continue current regular diet. Continue p.o. pain medications. We will discontinue IV pain medications overnight. We will repeat blood work in the morning. I discussed with the patient the importance of ambulating and she reported that she will walk in the hallway this evening. Job ID: [id number]
[2020-02-04] MEDS: Acetaminophen 500 MG TAB PO SCH ×4 (01:02→20:44)
[2020-02-04 05:19] LABS: #Lymphocytes 1.7 thou/uL (1.20-3.40); #Monocytes 1.2 thou/uL (0.11-0.59); #Neutrophils 11.7 thou/uL (1.40-6.50); %Eosinophils 0.1 % (0.0-10.0); %Lymphocytes 11.7 % (21.0-51.0); %Monocytes 7.9 % (0.0-10.0); %Neutrophils 80.3 % (42.0-75.0); Hemoglobin 8.2 g/dL (12.0-16.0); Mean Corpuscular HGB CONC 30.8 g/dL (32.0-36.0); Mean Corpuscular Hemoglobin 30.4 pg (27.0-31.0); Mean Corpuscular Volume 98.5 fL (78.0-98.0); Mean Platelet Volume 8.8 fL (7.4-10.4); Platelet Count 223 thou/uL (130-400); RBC Distribution Width 13.6 % (11.5-14.5); White Blood Cell (WBC) Count 14.5 thou/uL (4.8-10.8)
[2020-02-04] MEDS ORDERED: Morphine 2 MG/ML SYRINGE SLOW IVP SCH (05:30)
[2020-02-04 05:50] LABS: ALT (SGPT) 125 U/L (8-55); AST (SGOT) 86 U/L (5-34); Albumin 2.7 g/dL (3.5-5.0); Alkaline Phosphatase 191 U/L (40-110); Anion Gap 9 mmol/L (10-20); BUN (Urea Nitrogen) 16 mg/dL (7.0-18.7); Bilirubin, Total 1.2 mg/dL (0.2-1.2); Calc. Creatinine Clearance 137 mL/min (70-130); Calcium 7.5 mg/dL (7.8-10.44); Carbon Dioxide 24 mmol/L (22-29); Chloride 112 mmol/L (98-107); Estimated GFR-MDRD Greater than 90; Globulin 2.9 g/dL (2.4-3.5); Glucose 92 mg/dL (70-105); Lipase 75 U/L (8-78); Magnesium 2.2 mg/dL (1.6-2.6); Phosphorus 1.7 mg/dL (2.3-4.7); Potassium 3.8 mmol/L (3.5-5.1); Protein, Total 5.6 g/dL (6.0-8.3); Sodium 141 mmol/L (136-145)
[2020-02-04] MEDS ORDERED: K-Phos Neutral 250 MG TAB PO SCH (06:15)
[2020-02-04] MEDS: K-Phos Neutral 250 MG TAB PO SCH ×3 (08:12→17:10)
[2020-02-04] MEDS: predniSONE 5 MG TAB PO SCH (08:12)
[2020-02-04] MEDS: Folic Acid 1 MG TAB PO SCH (08:13)
[2020-02-04] MEDS ORDERED: Cyclobenzaprine 10 MG TAB PO SCH (08:30)
[2020-02-04] MEDS ORDERED: Potassium Phosphate 30 MMOL in Sodium Chloride 0.9% 500 ML IVPB SCH (14:30)
[2020-02-04] MEDS ORDERED: Cyclobenzaprine 10 MG TAB PO PRN (15:00)
[2020-02-04 20:06] VITALS: BP 149/93; TEMP 98.3
--- NOTE | 2020-02-04 20:32 | PRG ---
DATE OF SERVICE: 02/04/2020 SUBJECTIVE: The patient was seen during morning rounds, lying in hospital bed, in no acute distress. The patient is postop day #2, status post laparoscopic cholecystectomy. The patient continues to tolerate a regular diet. The patient reports some lower back pain/burning. Denies any urinary symptoms. The patient has not ambulated much and has been encouraged to ambulate frequently. The patient's ADALID drain has only put out 85 mL today of serosanguineous color. OBJECTIVE: VITAL SIGNS: Temperature 98.6, pulse 90, respirations 16, SpO2 of 95% on room air, blood pressure 142/85. GENERAL: A well-appearing female, lying in hospital bed, in no acute distress. ABDOMEN: Soft, nontender, nondistended. Left abdominal ADALID drain with serosanguineous output. EXTREMITIES: Moves all extremities, no focal deficits, no edema. ASSESSMENT: 1. Postoperative day #2, status post laparoscopic cholecystectomy. 2. Cholecystitis and cholelithiasis. 3. Choledocholithiasis. 4. Gallstone pancreatitis, resolved. PLAN: Continue regular diet. We will remove the patient's ADALID drain. The patient has been instructed to keep the incision site clean and dry and cover if she takes shower. The patient has been instructed to not lift anything heavier than 20 pounds. The patient is to follow up in the [facility] on February 17 at 2 p.m. The patient is to have her labs drawn the day before or that morning. A prescription for tramadol 50 mg p.o. q.6 hours p.r.n. pain, #20, has been written. The [employer] prescription monitoring program has been accessed and no recent prescriptions filled. The patient was examined by Dr. Atrhur. The patient is stable for discharge. Job ID: [id number]
--- NOTE | 2020-02-05 04:33 | DIS ---
DATE OF ADMISSION: 02/01/2020 DATE OF DISCHARGE: 02/04/2020 PRIMARY CARE PROVIDER: Fred Lei MD DISCHARGE DIAGNOSES: 1. Sepsis. 2. Sepsis secondary to acute cholecystitis. 3. Gallstone pancreatitis. 4. Cholelithiasis. 5. Abnormal liver function tests. CONDITION OF PATIENT ON THE DAY OF DISCHARGE: Stable. I assessed Ms. Mann on the day of discharge. She denies any chest pain or shortness of breath. She is tolerating diet well. Vital signs are stable. S1 and S2 are heard, regular. Lungs are clear to auscultation bilaterally. CONSULTATIONS DURING THIS HOSPITALIZATION: 1. Gastroenterology, Dr. Silva. 2. General Surgery, Madhu Arthur DO. HOSPITAL COURSE: Ms. Mann is a pleasant 49-year-old lady, who was admitted to [facility] on February 01, 2020, for sepsis. Please refer to Dr. Royal's history and physical note dated February 01, 2020, for further details. She had abnormal LFTs at the time of admission. MRI of the abdomen showed cholelithiasis, no evidence of choledocholithiasis, and findings suggestive of pancreatitis. She also had a lesion in the liver, which was statistically likely to represent a benign finding in the absence of known malignancy. She had small bilateral pleural effusions, small amount of free fluid in the abdomen and mild splenomegaly. She was seen by General Surgery Service. She underwent laparoscopic cholecystectomy on February 02, 2020. Pathology report indicates acute and chronic cholecystitis, as well as cholelithiasis. The patient continued to improve following surgery. She has been cleared for discharge by Surgical Service. Her LFTs improved as well. She is ambulating in the hallways. Her ADALID drain was removed as well. The patient is advised to follow up with primary care provider for final blood culture result. Preliminary blood cultures did not show any growth at 48 hours. On the day of discharge, she has sodium 141, potassium 3.8, creatinine 0.59, phosphorus 1.7, which is being replaced prior to discharge, total bilirubin 1.2, AST 86, ALT 125, [place] [address], hemoglobin 8.2, and platelet count 223,000. POST ACUTE CARE FOLLOWUP: With primary care provider in [address] Arthur on February 18, 2020 at 2:00 p.m. ACTIVITY: Activity restrictions provided by Surgical Service. DIET: Regular. DISCHARGE DESTINATION: Home. TIME SPENT: Total amount of time spent coordinating this discharge: 33 minutes. Job ID: [id number]
== END 2020-02-04 21:06 | disposition home or self-care (01) | DRG 853 ==
LOC: ERS 16:11 → 2NO 21:05 → OBSVTOIN 21:05 → T4-B 02-02 14:24
PROVIDERS: ADMIT Emergency Medicine; ATTEND Emergency Medicine
PROC: 0FT44ZZ Resection of Gallbladder, Percutaneous Endoscopic Approach (ICD-10-PCS; principal; 2020-02-02)
DX: A41.9 Sepsis, unspecified organism (principal); K85.10 Biliary acute pancreatitis without necrosis or infection; K80.62 Calculus of gallbladder and bile duct with acute cholecystitis without obstruction; E87.2 Acidosis; M06.9 Rheumatoid arthritis, unspecified; E87.6 Hypokalemia; R94.31 Abnormal electrocardiogram [ECG] [EKG]; R00.0 Tachycardia, unspecified; E86.0 Dehydration
CPT/HCPCS: 36415; 74181; 76705; 80048; 80053; 80076; 81003; 81015; 82533; 82550; 83690; 83735; 84100; 84484; 84703; 85025; 87040; 87086; 88304; 93005; J1100; J1170; J1720; J1885; J2001; J2250; J2270; J2405; J2543; J2704; J3010; J3475; J3480; J3490; J7050; J7512; S0020